=== PATIENT | male | born 1945 ===

== ENCOUNTER 2016-12-19 07:03 | Day surgery (SDC) | payer MEDICARE ==
[2016-09-12 08:58] VITALS: BMI 21.1
[2016-12-19] MEDS ORDERED: Propofol 10 mg/ml Inj (20 ML) ONE (08:43)
[2016-12-19] MEDS ORDERED: Lactated Ringer's 500 ML IV ONE (08:48)
[2016-12-19] MEDS ORDERED: Lidocaine Hydrochloride 5 ML INJ ONE (08:49)
--- NOTE | 2016-12-19 08:51 | CP.SDSHP ---
Same Day Surgery H & P - History Proposed Procedure: colonoscopy Pre-Op Diagnosis: change in bowels/constipation. weight loss - Previous Medical/Surgical History Cardiac: Hypertension Misc: Other (prostate cancer, gerd, gastritis, hiatal hernia, ) Pain: 0. No Pain Previous Surgical History: Prostatectomy - Allergies Allergies: Allergies No Known Allergies Allergy (Verified 12/19/16 07:32) - Physical Exam Vital Signs: Vital Signs 12/19/16 07:30 Pulse Rate 90 Mental Status: Alert & Oriented x3 Neuro: WNL Heart: WNL Lungs: WNL GI: WNL - Impression Impression: change in bowels/constipation. weight loss Pt. Evaluated Today:Candidate for Anesthesia & Procedure: Yes - Date & Time Date: 12/19/16 Time: 08:51 Short Stay Discharge - Short Stay Discharge Admitting Diagnosis/Reason for Visit: CHANGE IN BOWEL HABIT,LEFT LOWER QUADRANT PAIN,CON Disposition: HOME/ ROUTINE
[2016-12-19 09:22] VITALS: TEMP 97.1
[2016-12-19 09:31] VITALS: O2SAT 99
[2016-12-19 10:02] VITALS: BP 158/76; PULSE 65; RESP 15
== END 2016-12-19 10:15 | disposition home or self-care (01) ==
LOC: C.ENDO 07:03
PROVIDERS: ATTEND Internal Medicine Gastroenterology
DX: D12.7 Benign neoplasm of rectosigmoid junction (principal); K64.1 Second degree hemorrhoids; R19.4 Change in bowel habit; R63.4 Abnormal weight loss; I10 Essential (primary) hypertension; C61 Malignant neoplasm of prostate
CPT/HCPCS: 45380; 88305; J2704; J7120

== ENCOUNTER 2017-11-05 07:09 | Day surgery (SDC) | payer MEDICARE ==
[2017-11-05 07:29] VITALS: BMI 21.2
[2017-11-05] MEDS ORDERED: Propofol 10 mg/ml Inj (20 ML) ONE (08:23)
[2017-11-05] MEDS ORDERED: Lactated Ringer's 1,000 ML IV ONE (08:35)
--- NOTE | 2017-11-05 08:35 | CP.SDSHP ---
Same Day Surgery H & P - History Proposed Procedure: EGD Pre-Op Diagnosis: epigastric pain/tenderness - Previous Medical/Surgical History Cardiac: Hypertension Neuro: Backaches Misc: Other (diverticulosis, gerd, gastritis, colon polyps, depression, hemorrhoids, Prostate cancer) Previous Surgical History: prostatectomy - Allergies Allergies: Allergies No Known Allergies Allergy (Verified 12/19/16 07:32) - Physical Exam Vital Signs: Vital Signs 11/05/17 07:32 Temperature 98.7 F Pulse Rate 84 Respiratory 16 Rate Blood Pressure 162/81 H O2 Sat by Pulse 99 Oximetry Mental Status: Alert & Oriented x3 Neuro: WNL Heart: WNL Lungs: WNL GI: WNL - Impression Impression: epigastric pain/tenderness Pt. Evaluated Today:Candidate for Anesthesia & Procedure: Yes - Date & Time Date: 11/05/17 Time: 08:35 Short Stay Discharge - Short Stay Discharge Admitting Diagnosis/Reason for Visit: ACUTE GASTRITIS / EPIGASTRIC PAIN / TENDERNESS Disposition: HOME/ ROUTINE
[2017-11-05] MEDS ORDERED: Pantoprazole 40 mg EC Tab PO STA (08:36)
[2017-11-05] MEDS ORDERED: Lidocaine Hydrochloride 5 ML INJ ONE (08:55)
[2017-11-05 09:20] VITALS: TEMP 97
[2017-11-05 10:22] VITALS: RESP 18
[2017-11-05 10:25] VITALS: O2SAT 99
[2017-11-05 10:33] VITALS: BP 179/86; PULSE 68
== END 2017-11-05 09:55 | disposition home or self-care (01) ==
LOC: C.ENDO 07:09
PROVIDERS: ATTEND Internal Medicine Gastroenterology
DX: R10.13 Epigastric pain (principal); K21.0 Gastro-esophageal reflux disease with esophagitis; F32.9 Major depressive disorder, single episode, unspecified; I10 Essential (primary) hypertension; Z85.46 Personal history of malignant neoplasm of prostate; K29.50 Unspecified chronic gastritis without bleeding
CPT/HCPCS: 43239; 88305; J2704; J7120

== ENCOUNTER 2018-07-22 23:53 | Inpatient (IN) | payer MEDICARE ==
[2018-07-22 23:53] VITALS: BMI 21.2
--- NOTE | 2018-07-23 00:30 | C.PDOC ---
History Of Present Illness 73 year old male with a Hx of HTN and gastritis presents to the ER via EMS after being found wandering in the street. As per family, patient went to see Dr. Menendez at 1100 today where he had a bladder procedure done. Patient states he was given an anesthetic that numbed him from the waist down but notes he was awake for the procedure. Patient left the office at 1400, upon leaving he began to feel dizzy and could not remember how to get home so he wandered around. Family member at the bedside reports patient had a similar episode after coming out of a doctors office approximately 1-1.5 months ago. Patient is currently aaox3. Patient has Hx of surgery of the prostate from prostate ca. Denies chest pain, SOB, nausea, vomiting, or any injury. Time Seen by Provider: 07/23/18 00:30 Chief Complaint (Nursing): Medical Clearance History Per: Patient, Family History/Exam Limitations: no limitations Onset/Duration Of Symptoms: Hrs Current Symptoms Are (Timing): Still Present Recent travel outside of the [place]: No Past Medical History Reviewed: Historical Data, Nursing Documentation, Vital Signs Vital Signs: Last Vital Signs Temp 98.6 F 07/23/18 00:02 Pulse 94 H 07/23/18 00:02 Resp 20 07/23/18 00:02 BP 191/103 H 07/23/18 00:02 Pulse Ox 100 07/23/18 00:02 - Medical History PMH: Arthritis, Gastritis, HTN, Pneumonia Denies: Crohn's Disease, Diverticulitis, Gall Bladder Disease, Chronic Kidney Disease Surgical History: Endoscopy - [facility] Procedures COLONOSCOPY (07/21/14) ESOPHAGOGASTRODUODENOSCOPY [EGD] W/CLOSED BIOPSY (05/19/14) Family History: States: Unknown Family Hx - Social History Hx Tobacco Use: No Hx Alcohol Use: No Hx Substance Use: No - Immunization History Hx Tetanus Toxoid Vaccination: No Hx Influenza Vaccination: No Hx Pneumococcal Vaccination: No Review Of Systems Constitutional: Negative for: Fever, Chills, Weakness, Malaise Eyes: Negative for: Pain, Eyelid Inflammation ENT: Negative for: Ear Pain, Ear Discharge, Nose Pain, Nose Congestion, Mouth Pain, Mouth Swelling, Throat Pain, Throat Swelling Cardiovascular: Negative for: Chest Pain, Palpitations, Orthopnea, Edema, Light Headedness Respiratory: Negative for: Cough, Shortness of Breath, SOB with Excertion, Pleuritic Pain Gastrointestinal: Negative for: Nausea, Vomiting, Abdominal Pain, Constipation, Melena, Hematochezia Genitourinary: Negative for: Dysuria, Hematuria Musculoskeletal: Negative for: Neck Pain, Shoulder Pain, Arm Pain, Back Pain, Hand Pain Skin: Negative for: Rash, Lesions Neurological: Negative for: Weakness, Numbness, Incoordination, Change in Spee ch, Confusion, Seizures, Altered Mental Status, Headache, Dizziness Psych: Negative for: Anxiety, Depression Physical Exam - Physical Exam Appears: Well, Non-toxic, No Acute Distress Skin: Normal Color, Warm, Dry Head: Atraumatic, Normacephalic Eye(s): bilateral: Normal Inspection, PERRL, EOMI Ear(s): Bilateral: Normal Nose: Normal Oral Mucosa: Moist Tongue: Normal Appearing Lips: Normal Appearing Gingiva: Normal Appearing Throat: Normal, No Erythema Neck: Normal, Normal ROM, No Midline Cervical Tenderness, No Paracervical Tende rness, Supple, Other (no meningeal signs) Chest: Symmetrical, No Tenderness Cardiovascular: Rhythm Regular, No Friction Rub, No Murmur Respiratory: Normal Breath Sounds, No Rales, No Rhonchi, No Stridor, No Wheezing Gastrointestinal/Abdominal: Normal Exam, Soft, No Tenderness, No Mass, No Distention, No Rebound Back: Normal Inspection, No CVA Tenderness, No Vertebral Tenderness, No Decreased ROM Extremity: Normal ROM, No Tenderness, No Calf Tenderness, Capillary Refill (normal), No Deformity Extremity: Bilateral: Atraumatic, Hips Non-Tender, Normal ROM Pulses: Left Dorsalis Pedis: Normal, Right Dorsalis Pedis: Normal Neurological/Psych: Oriented x3, Normal Speech, Normal Cognition, Normal Cranial Nerves, No Cerebellar Signs, Normal Motor, Normal Sensation Gait: Steady Extremity: Right: No Drift, Left: No Drift, Upper: No Drift, Lower: No Drift ED Course And Treatment - Laboratory Results Result Diagrams: 07/23/18 01:07 07/23/18 01:07 ECG: Interpreted By Me, Viewed By Me ECG Rhythm: Sinus Rhythm ECG Interpretation: Normal Interpretation Of ECG: PVCs, No STEMI Rate From EC O2 Sat by Pulse Oximetry: 100 (Room air) Pulse Ox Interpretation: Normal - CT Scan/US CT Head Other Rad Studies (CT/US): Read By Radiologist, Radiology Report Reviewed CT/US Interpretation: EXAM: CT Head without Intravenous Contrast. CLINICAL HISTORY: Confused. TECHNIQUE: Axial computed tomography images of the head/brain without intravenous contrast. 1071 mGy-cm. COMPARISON: CT\SD - HEAD W/O CONTRAST - 10/15/2015 08:34 AM EST. FINDINGS: BRAIN. Chronic periventricular and subcortical microvascular disease is seen. VENTRICLES: There is generalized parenchymal atrophy noted as demonstrated by symmetrical dilatation of ventricles and sulci. ORBITS: The orbits are unremarkable. SINUSES AND MASTOIDS: The paranasal sinuses and mastoid air cells are clear. BONES: No fracture. SOFT TISSUES: Unremarkable. MISCELLANEOUS: No acute intracranial pathology. IMPRESSION: 1. There is generalized parenchymal atrophy noted as demonstrated by symmetrical dilatation of ventricles and sulci. 2. Chronic periventricular and subcortical microvascular disease is seen. 3. No acute intracranial pathology. Medical Decision Making Medical Decision Makin yr old male w/ hx of HLD, recent cystoscopy p/w confusion this morning after procedure. Pt was given anesthesia and medications. Per family pt was wandering until found by PD. Pt notes that he was confused on how to get home. Previous occurence similiar to this one after getting anesthesia and medications. No fever. No chest pain or SOB. No fall or trauma. No back pain. Walking well in NAD. AOx3 w/ normal neuro exam. BP likely elevated 2/2 pt not taking PM dose of norvasc, will give pM dose CT head, blood work, EKG, and urinalysis ordered. Norvasc and IV fluids administered. 0210 labs, ct head unremarkable BP improved pt remains AOx3, N/V intact in all extremities and without FND. Clear for d/c home likely confused/ lost getting home 2/2 med side effect. given return instructions and f/u to pt and family members bedside, they are all agreeable Disposition - Disposition Disposition Time: 02:09 Condition: GOOD Forms: [facility] (Georgian) - Clinical Impression Clinical Impression: Well adult health check - Scribe Statement The provider has reviewed the documentation as recorded by the Scribe Darrian Che All medical record entries made by the Scribe were at my direction and personally dictated by me. I have reviewed the chart and agree that the record a ccurately reflects my personal performance of the history, physical exam, medical decision making, and the department course for this patient. I have also personally directed, reviewed, and agree with the discharge instructions and disposition.
[2018-07-23 01:15] LABS: BASO % 0.3 % (0.0-2.0); EOS % 0.1 % (0.0-4.0); HEMOGLOBIN 14.6 g/dL (12.0-18.0); LYMPH # 1.1 K/uL (1.0-4.3); LYMPH % 9.1 % (20.0-40.0); MEAN CELL VOLUME 91.1 fL (80.0-94.0); MEAN CORPUSCULAR HEMOGLOBIN 31.4 pg (27.0-31.0); MEAN CORPUSCULAR HGB CONC 34.5 g/dL (33.0-37.0); MEAN PLATELET VOLUME 7.9 fL (7.2-11.7); MONO # 0.9 K/uL (0.0-0.8); MONO % 7.5 % (0.0-10.0); PLATELET COUNT 261 K/uL (130-400); RBC 4.64 Mil/uL (4.40-5.90); RED CELL DISTRIBUTION WIDTH 13.5 % (11.5-14.5); WHITE BLOOD COUNT 12.1 K/uL (4.8-10.8)
[2018-07-23] MEDS ORDERED: Sodium Chloride 0.9% 1,000 ML IV SCH ×4 (01:15→23:00)
[2018-07-23 01:39] LABS: ALB/GLOB RATIO 1.6 (1.0-2.1); ALBUMIN 4.5 g/dL (3.5-5.0); ALT/SGPT 42 U/L (21-72); AST/SGOT 128 U/L (17-59); BLOOD UREA NITROGEN 14 mg/dL (9-20); CALCIUM 9.6 mg/dl (8.6-10.4); GFR NON-AFRICAN AMERICAN > 60
[2018-07-23 01:41] LABS: SQUAMOUS EPITHIAL < 1 /hpf (0-5); URINE BILIRUBIN NEGATIVE (NEGATIVE); URINE BLOOD NEGATIVE (NEGATIVE); URINE CLARITY Clear (Clear); URINE COLOR Yellow (YELLOW); URINE GLUCOSE (UA) NORMAL (Normal); URINE LEUKOCYTE ESTERASE NEG Leu/uL (Negative); URINE PROTEIN NEGATIVE (NEGATIVE); URINE UROBILINOGEN NORMAL mg/dL (0.2-1.0)
[2018-07-23 01:57] LABS: BANDS 1 % (0-2); LYMPHOCYTE 10 % (20-40); MONOCYTE 8 % (0-10); NEUTROPHIL 81 % (50-75); PLATELET ESTIMATE NORMAL (NORMAL); TOTAL CELLS COUNTED 100
[2018-07-23] MEDS ORDERED: Sodium Chloride 0.9% 1,000 ML IV ONE (02:43)
[2018-07-23 02:51] VITALS: RESP 20
--- NOTE | 2018-07-23 07:30 | CP.PCM.PN ---
Subjective - Date & Time of Evaluation Date of Evaluation: 07/23/18 Time of Evaluation: 09:35 - Subjective Subjective: Mr. Aragon is a 73 year old male with a PMHx of Arthritis, HTN, and Prostate CA (12 years remission) who was admitted for evaluation and treatment of rhabdomyolysis. Patient states that he left from his Biannual Prostate follow up in a taxi. During that physician visit he underwent procedure where he was numb for the waist down. Following the visit, the took a taxi to go home. The taxi went too far. When the taxi finally realized he went to far, he dropped him off at the current location at the time. Patient because confused and walked around for hours. His family called the police. He was found by police, brought home, and then the family brought him the [facility] ED. Today, patient offers no complaints. He denies any fevers, chills, SOB, chest pain, abdominal pain, nausea, vomiting, changes in bowel habits, urinary symptoms PMHx: As stated above PSHx: Prostatectomy Allergies: NDKA SocialHx: Denies tobacco, alcohol and illicit drug use Hos: Sepsis 2/2 to PNA in 09/2016 FamHx: Sister - Breast CA, Brother x 2 - Prostate CA Meds: per NOV. Objective - Vital Signs/Intake and Output Vital Signs (last 24 hours): Temp Pulse Resp BP Pulse Ox 97.8 F 84 20 126/78 99 07/23/18 05:10 07/23/18 05:10 07/23/18 05:10 07/23/18 05:10 07/23/18 05:10 Intake and Output: 07/23/18 07/23/18 06:59 18:59 Output Total 275 Balance -275 - Medications Medications: Current Medications Influenza Virus Vaccine (Fluzone Quad [id number]) 60 mcg IM .ONCE ONE Stop: 07/25/18 10:01 Pneumococcal Polyvalent Vaccine (Pneumovax 23 Vaccine) 0.5 ml IM .ONCE ONE Stop: 07/25/18 10:01 - Labs Labs: 07/23/18 01:07 07/23/18 01:07 - Constitutional Appears: Well, Non-toxic, No Acute Distress - Head Exam Head Exam: ATRAUMATIC, NORMAL INSPECTION, NORMOCEPHALIC - Eye Exam Eye Exam: EOMI, Normal appearance - ENT Exam ENT Exam: Mucous Membranes Moist - Respiratory Exam Respiratory Exam: Clear to Ausculation Bilateral. absent: Accessory Muscle Use - GI/Abdominal Exam GI & Abdominal Exam: Soft, Normal Bowel Sounds. absent: Tenderness - Extremities Exam Extremities Exam: Normal Capillary Refill, Normal Inspection - Neurological Exam Neurological Exam: Alert, Awake, Oriented x3 - Psychiatric Exam Psychiatric exam: Normal Affect, Normal Mood - Skin Skin Exam: Dry, Intact, Normal Color, Warm Assessment and Plan - Assessment and Plan (Free Text) Assessment: 73 year old male with a PMHx of Arthritis, HTN, and Prostate CA (12 years remission) who was admitted for evaluation and treatment of rhabdomyolysis Plan: Rhabdomyolysis Total CK - 4989 on Admission Troponin Negative Physical Therapy Meds: NS @ 300mls/hr then taper Leukocytosis Likely Reactive 2/2 to above Elevated liver enzymes AST elevated Hepatitis Panel Ordered, F/U Hx of HTN Meds: Losartan 100 Daily Amlodipine 5 PO Daily Hx of Prostate CA Meds: Flomax 0.4mg Daily Proph Heparin Q12H Regular diet Patient seen and discussed with Attending Bebeto Felder, PGY-2
--- NOTE | 2018-07-23 09:42 | CT ---
Date of service: 07/23/2018 PROCEDURE: CT HEAD WITHOUT CONTRAST. HISTORY: Confused earlier COMPARISON: Comparison made with CT scan the brain 10/15/2015. TECHNIQUE: Axial computed tomography images were obtained through the head/brain without intravenous contrast. Radiation dose: Total exam DLP = 1071.25 mGy-cm. This CT exam was performed using one or more of the following dose reduction techniques: Automated exposure control, adjustment of the mA and/or kV according to patient size, and/or use of iterative reconstruction technique. FINDINGS: HEMORRHAGE: No acute parenchymal, subarachnoid or extra-axial the hemorrhage. BRAIN: The moderate diffuse/confluent chronic periventricular white matter ischemic changes are again seen extending peripherally into the deep and subcortical white matter both cerebral hemispheres. Changes become more patchy as they extend peripherally into the subcortical of regions. Additionally, there are scattered chronic appearing bilateral basal nuclei lacunar type infarcts. Small chronic left cerebellar infarct again noted well. Mild-moderate generalized volume loss Mild vascular calcifications both carotid siphons the VENTRICLES: No obstructive hydrocephalus. CALVARIUM: No acute calvarial fractures.. 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 PARANASAL SINUSES: Small focal area polypoid like mucosal thickening floor right maxillary antrum. MASTOID AIR CELLS: Partial opacification right mastoid air complex OTHER FINDINGS: None. IMPRESSION: No acute intracranial hemorrhage. Moderate chronic white matter ischemic changes with scattered chronic appearing bilateral basal nuclei lacunar type infarcts. 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 Segment. The Moderate generalized volume loss. 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
[2018-07-23] MEDS: Sodium Chloride 0.9% 1,000 ML IV SCH ×4 (11:59→21:46)
[2018-07-24] MEDS: Sodium Chloride 0.9% 1,000 ML IV SCH ×3 (02:30→12:18)
[2018-07-24 07:39] LABS: BASO % 0.6 % (0.0-2.0); EOS # 0.1 K/uL (0.0-0.7); EOS % 1.5 % (0.0-4.0); HEMOGLOBIN 13.5 g/dL (12.0-18.0); LYMPH # 1.8 K/uL (1.0-4.3); LYMPH % 26.6 % (20.0-40.0); MEAN CELL VOLUME 91.5 fL (80.0-94.0); MEAN CORPUSCULAR HEMOGLOBIN 31.7 pg (27.0-31.0); MEAN CORPUSCULAR HGB CONC 34.6 g/dL (33.0-37.0); MEAN PLATELET VOLUME 7.5 fL (7.2-11.7); MONO # 0.5 K/uL (0.0-0.8); MONO % 7.9 % (0.0-10.0); NEUT # 4.2 K/uL (1.8-7.0); NEUT % 63.4 % (50.0-75.0); RBC 4.25 Mil/uL (4.40-5.90); RED CELL DISTRIBUTION WIDTH 13.7 % (11.5-14.5); WHITE BLOOD COUNT 6.6 K/uL (4.8-10.8)
[2018-07-24 07:46] LABS: INR 1.3; PROTHROMBIN TIME 13.8 SECONDS (9.7-12.2)
[2018-07-24 08:32] LABS: ALB/GLOB RATIO 1.2 (1.0-2.1); ALBUMIN 3.3 g/dL (3.5-5.0); ALT/SGPT 38 U/L (21-72); AST/SGOT 91 U/L (17-59); BLOOD UREA NITROGEN 11 mg/dL (9-20); CALCIUM 8.3 mg/dl (8.6-10.4); GFR NON-AFRICAN AMERICAN > 60
[2018-07-24 08:36] LABS: HEPATITIS B SURFACE AG Negative (NEGATIVE)
[2018-07-24 08:42] LABS: HEPATITIS A IGM NEGATIVE (NEGATIVE); HEPATITIS B CORE AB NEGATIVE (NEGATIVE)
[2018-07-24 08:45] VITALS: BP 170/85; PULSE 92; TEMP 98.4; O2SAT 99
[2018-07-24 08:53] LABS: HEPATITIS B SURFACE AG Negative (NEGATIVE); HEPATITIS C ANTIBODY NEGATIVE (NEGATIVE)
[2018-07-24] MEDS ORDERED: Magnesium Oxide 400 mg Tab UD PO ONE (11:59)
--- NOTE | 2018-07-24 12:00 | CP.PCM.PN ---
Subjective - Date & Time of Evaluation Date of Evaluation: 07/24/18 Time of Evaluation: 12:00 - Subjective Subjective: PGY2 Progress note for Dr. Randall Patient was seen and examined at bedside in no acute distress. Patient reports feeling well and has no complaints. The patient denies chest pain, palpitations, dyspnea, cough, nausea, vomiting, fevers, headaches, muscle aches, dysuria, and diarrhea. Objective - Vital Signs/Intake and Output Vital Signs (last 24 hours): Temp Pulse Resp BP Pulse Ox 98.4 F 92 H 20 170/85 H 99 07/24/18 08:00 07/24/18 08:00 07/24/18 08:00 07/24/18 08:00 07/24/18 08:00 Intake and Output: 07/24/18 07/24/18 06:59 18:59 Intake Total 1900 Balance 1900 - Medications Medications: Current Medications Amlodipine Besylate (Norvasc) 5 mg PO DAILY [facility] Last Admin: 07/24/18 10:04 Dose: 5 mg Gabapentin (Neurontin) 100 mg PO TID PRN PRN Reason: Pain Last Admin: 07/23/18 11:58 Dose: 100 mg Heparin Sodium (Porcine) (Heparin) 5,000 units SC Q12 [facility] Last Admin: 07/24/18 10:04 Dose: 5,000 units Sodium Chloride (Sodium Chloride 0.9%) 1,000 mls @ 200 mls/hr IV .Q5H [facility] Last Admin: 07/24/18 07:30 Dose: 200 mls/hr Influenza Virus Vaccine (Fluzone Quad [id number]) 60 mcg IM .ONCE ONE Stop: 07/25/18 10:01 Losartan Potassium (Cozaar) 100 mg PO DAILY [facility] Last Admin: 07/24/18 10:04 Dose: 100 mg Magnesium Oxide (Mag-Ox) 400 mg PO ONCE ONE Stop: 07/24/18 12:00 Pneumococcal Polyvalent Vaccine (Pneumovax 23 Vaccine) 0.5 ml IM .ONCE ONE Stop: 07/25/18 10:01 Tamsulosin HCl (Flomax) 0.4 mg PO DAILY [facility] Last Admin: 07/24/18 10:04 Dose: 0.4 mg - Labs Labs: 07/24/18 07:32 07/24/18 07:32 PT 13.8 SECONDS (9.7-12.2) H 07/24/18 07:32 INR 1.3 07/24/18 07:32 APTT 28 SECONDS (21-34) 07/24/18 07:32 - Constitutional Appears: No Acute Distress - Head Exam Head Exam: NORMAL INSPECTION - Eye Exam Eye Exam: EOMI, Normal appearance - ENT Exam ENT Exam: Mucous Membranes Moist - Respiratory Exam Respiratory Exam: NORMAL BREATHING PATTERN. absent: Rales, Rhonchi, Wheezes, Respiratory Distress - Cardiovascular Exam Cardiovascular Exam: REGULAR RHYTHM, +S1, +S2 - GI/Abdominal Exam GI & Abdominal Exam: Soft, Normal Bowel Sounds. absent: Distended, Firm, Guarding, Tenderness - Extremities Exam Extremities Exam: Normal Inspection. absent: Calf Tenderness, Pedal Edema, Tenderness - Neurological Exam Neurological Exam: Alert, Awake, Oriented x3 - Psychiatric Exam Psychiatric exam: Normal Affect, Normal Mood - Skin Skin Exam: Dry, Intact, Normal Color, Warm Assessment and Plan - Assessment and Plan (Free Text) Plan: 73 year old male with a PMHx of Arthritis, HTN, and Prostate CA (12 years remission) who was admitted for evaluation and treatment of rhabdomyolysis Rhabdomyolysis Improving Total CK - 4989 on Admission --> 1130 Troponin Negative Physical Therapy Meds: NS @ 300mls/hr then taper Leukocytosis Resovled Likely Reactive 2/2 to above Elevated liver enzymes Decreasing AST elevated Hepatitis A,B, C negative HTN Meds: Losartan 100 Daily , Amlodipine 5 PO Daily Prostate CA Meds: Flomax 0.4mg Daily Prophylaxis - Heparin Q12H - Regular diet All medical management per Dr. Randall. Patient is stable for discharge to home per Dr. Randall. Patient must continue home medications. Patient must follow up with PMD within one week of discharge. If symptoms worsen or reoccur, patient must return to the nearest ED.
[2018-07-25] MEDS ORDERED: Pneumococcal 23-Valent Vaccine IM ONE (10:00)
[2018-07-25] MEDS ORDERED: Influenza Vaccine 60 MCG/0.5 ML SYR (3 yr & up) IM ONE (10:00)
--- NOTE | 2018-07-25 10:06 | HP ---
HISTORY OF PRESENT ILLNESS: A 73-year-old male admitted to the hospital complaining of confusion, weakness after outpatient surgery. The patient was confused in the care, but denies go to the hospital. Advised admission. PHYSICAL EXAMINATION: GENERAL: The patient is awake, alert, oriented. VITAL SIGNS: Temperature 98, pulse 90. HEENT: Within normal limit. NECK: Supple. CHEST: Symmetrical. HEART: Regular. ABDOMEN: Soft. EXTREMITIES: No edema. 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 The patient is to get bedrest, supportive care, IV fluid. Fabricio Randall MD
== END 2018-07-24 13:05 | disposition home or self-care (01) | DRG 558 ==
LOC: C.ER 23:53 → C.3T 07-23 04:12
PROVIDERS: ADMIT Internal Medicine Pulmonary Disease; ATTEND Internal Medicine Pulmonary Disease
DX: M62.82 Rhabdomyolysis (principal); Z85.46 Personal history of malignant neoplasm of prostate; R74.8 Abnormal levels of other serum enzymes; I10 Essential (primary) hypertension; E78.5 Hyperlipidemia, unspecified; F09 Unspecified mental disorder due to known physiological condition; Z91.83 Wandering in diseases classified elsewhere

== ENCOUNTER 2018-07-25 07:52 | Emergency (ER) | payer MEDICARE ==
[2018-07-25 07:52] VITALS: BMI 21.2
--- NOTE | 2018-07-25 08:17 | C.PDOC ---
History Of Present Illness 73 yo male, hx of rhabdo, htn, presetns with lower abd pain, constipation x 5 days. as per preivous records, admitted for rhabdo, dc yesterdya. pt reports continued lower abd pain. no fevers, no n/v. pt poor historairn, reportly arr ived confused in er few days back s/p prostate procedure. Time Seen by Provider: 07/25/18 07:56 Chief Complaint (Nursing): Abdominal Pain Past Medical History Reviewed: Historical Data, Nursing Documentation, Vital Signs Vital Signs: Last Vital Signs Temp 98.7 F 07/25/18 08:00 Pulse 81 07/25/18 08:00 Resp 18 07/25/18 08:00 BP 186/82 H 07/25/18 08:00 Pulse Ox 100 07/25/18 08:00 - Medical History PMH: Arthritis, Gastritis, HTN, Pneumonia Denies: Crohn's Disease, Diverticulitis, Gall Bladder Disease, Chronic Kidney Disease Surgical History: Endoscopy - [facility] Procedures COLONOSCOPY (07/21/14) ESOPHAGOGASTRODUODENOSCOPY [EGD] W/CLOSED BIOPSY (05/19/14) Family History: States: Unknown Family Hx - Social History Hx Tobacco Use: No Hx Alcohol Use: No Hx Substance Use: No - Immunization History Hx Tetanus Toxoid Vaccination: No Hx Influenza Vaccination: No Hx Pneumococcal Vaccination: No Review Of Systems Except As Marked, All Systems Reviewed And Found Negative. Gastrointestinal: Positive for: Abdominal Pain Physical Exam - Physical Exam Appears: Well, No Acute Distress Skin: Normal Color, Warm, Dry Eye(s): bilateral: Normal Inspection, PERRL, EOMI Nose: Normal Throat: Normal Neck: Normal Cardiovascular: Rhythm Regular Respiratory: Normal Breath Sounds Gastrointestinal/Abdominal: Normal Exam, Soft, Tenderness (lower abd), No Guarding, No Rebound Back: Normal Inspection Extremity: Normal ROM ED Course And Treatment - Laboratory Results Result Diagrams: 07/25/18 08:21 07/25/18 08:21 O2 Sat by Pulse Oximetry: 100 Medical Decision Making Medical Decision Making: lower abd pain r/o coltiis pbostruciton, procedural complciation. ekg nsr [address] t wavce changes pt reassesed labs neg. ct shows constioation. enema given with large bm asking for dc. Disposition - Disposition Referrals: Eitan Alvarado MD [Staff Provider] - Disposition: HOME/ ROUTINE Disposition Time: 12:30 Condition: GOOD Additional Instructions: return to er with worsening symptoms or concerns. follow up with specialist. Prescriptions: Polyethylene Glycol 3350 [Miralax] 17 gm PO DAILY PRN #4 [email or web address] PRN Reason: Constipation Instructions: Constipation in Adults, Acute Abdomen (Belly Pain) Forms: [facility] (Azerbaijani), Work Excuse Print Language: BURUNDIAN - Clinical Impression Clinical Impression: Constipation, Abdominal pain
[2018-07-25 08:25] LABS: BASO # 0.1 K/uL (0.0-0.2); BASO % 0.7 % (0.0-2.0); EOS # 0.1 K/uL (0.0-0.7); EOS % 1.1 % (0.0-4.0); HEMOGLOBIN 13.3 g/dL (12.0-18.0); LYMPH # 1.1 K/uL (1.0-4.3); LYMPH % 13.1 % (20.0-40.0); MEAN CELL VOLUME 91.2 fL (80.0-94.0); MEAN CORPUSCULAR HEMOGLOBIN 31.4 pg (27.0-31.0); MEAN CORPUSCULAR HGB CONC 34.4 g/dL (33.0-37.0); MEAN PLATELET VOLUME 7.7 fL (7.2-11.7); MONO # 0.6 K/uL (0.0-0.8); MONO % 7.2 % (0.0-10.0); NEUT # 6.4 K/uL (1.8-7.0); NEUT % 77.9 % (50.0-75.0); NRBC % 0.1 % (0.0-2.0); RBC 4.23 Mil/uL (4.40-5.90); RED CELL DISTRIBUTION WIDTH 13.6 % (11.5-14.5); WHITE BLOOD COUNT 8.2 K/uL (4.8-10.8)
[2018-07-25 08:36] LABS: INR 1.2
[2018-07-25 08:49] LABS: ALB/GLOB RATIO 1.3 (1.0-2.1); ALBUMIN 4.2 g/dL (3.5-5.0); ALT/SGPT 43 U/L (21-72); AST/SGOT 121 U/L (17-59); BLOOD UREA NITROGEN 10 mg/dL (9-20); CALCIUM 9.2 mg/dl (8.6-10.4); GFR NON-AFRICAN AMERICAN > 60; LIPASE 49 U/L (23-300)
--- NOTE | 2018-07-25 08:56 | RAD ---
Chest x-ray single frontal view HISTORY: Chest pain. Comparison: 09/12/2016 Findings: Hyperinflation suggestive for COPD and or emphysematous changes. Biapical pleural thickening with upper lobe granulomatous changes. Diffuse increased interstitial markings. Blunting of the bilateral costophrenic angles. Few small scattered nodular densities in both galvan. Heart size within limits. Aortic atherosclerotic calcification at the aortic knob. Degenerative changes in the spine. Impression: Hyperinflation suggestive for COPD and or emphysematous changes. Biapical pleural thickening with upper lobe granulomatous changes. Diffuse increased interstitial markings. Blunting of the bilateral costophrenic angles. Few small scattered nodular densities in both galvan. Heart size within limits. Aortic atherosclerotic calcification at the aortic knob. Degenerative changes in the spine.
[2018-07-25 09:40] LABS: URINE BILIRUBIN NEGATIVE (NEGATIVE); URINE BLOOD NEGATIVE (NEGATIVE); URINE CLARITY Clear (Clear); URINE COLOR Straw (YELLOW); URINE GLUCOSE (UA) NORMAL (Normal); URINE LEUKOCYTE ESTERASE NEG Leu/uL (Negative); URINE PROTEIN NEGATIVE (NEGATIVE); URINE UROBILINOGEN NORMAL mg/dL (0.2-1.0)
[2018-07-25] MEDS ORDERED: Iodixanol 320 MG/ML 100 ML BOTTLE IV ONE (09:56)
--- NOTE | 2018-07-25 11:21 | CT ---
Date of service: 07/25/2018 PROCEDURE: CT Abdomen and Pelvis with contrast HISTORY: lower abd pain COMPARISON: Comparison is made to the previous study dated 06/24/2018 TECHNIQUE: Contrast dose: Axial and reformatted coronal and sagittal CT images of the abdomen and pelvis were obtained after IV contrast administration. Contrast volume: 100 mL Visipaque 320 intravenously. Radiation dose: Total exam DLP = 226.39 mGy-cm. This CT exam was performed using one or more of the following dose reduction techniques: Automated exposure control, adjustment of the mA and/or kV according to patient size, and/or use of iterative reconstruction technique. FINDINGS: LOWER THORAX: No evidence of acute pathology at the lung bases. Diffuse distal esophageal mucosal thickening is again noted. LIVER: No significant interval changes noted in the liver. GALLBLADDER AND BILE DUCTS: No evidence of acute cholecystitis. PANCREAS: Small size pancreas with slight dilatation of the main pancreatic duct is again noted. SPLEEN: Unremarkable. ADRENALS: Unremarkable. No mass. KIDNEYS AND URETERS: Again noted defects in the bilateral renal cortex suggestive of prior injury or infection. No evidence of hydronephrosis or hydroureter. VASCULATURE: Unremarkable. No aortic aneurysm. No aortic atherosclerotic calcification or mural plaque present. BOWEL: Mild to moderate constipation is noted. No obstruction. No gross mural thickening. APPENDIX: No evidence of appendicitis. PERITONEUM: Unremarkable. No free fluid. No free air. LYMPH NODES: Unremarkable. No enlarged lymph nodes. BLADDER: Unremarkable. REPRODUCTIVE: Unremarkable. BONES: No acute fracture. OTHER FINDINGS: None. IMPRESSION: [id number] constipation. Otherwise no significant interval changes noted since the prior study.
[2018-07-25 12:55] VITALS: BP 154/79; PULSE 88; RESP 18; TEMP 99.3
[2018-07-25 16:04] VITALS: O2SAT 100
--- NOTE | 2018-07-29 22:24 | CARD ---
APPROVED REPORT Date of service: 07/25/2018 EKG Measurement Heart [id number] [place] [id number] <Conclusion> Sinus rhythm with premature ventricular complexes or fusion complexes Minimal voltage criteria for LVH, may be normal variant Borderline ECG
== END 2018-07-25 13:31 | disposition home or self-care (01) ==
LOC: C.ER 07:52
DX: R10.9 Unspecified abdominal pain (principal); K59.00 Constipation, unspecified; I10 Essential (primary) hypertension; Z87.01 Personal history of pneumonia (recurrent)
CPT/HCPCS: 71045; 74177; 80053; 81001; 82550; 83690; 84484; 85025; 85610; 85730; 93005; 99285; Q9967

== ENCOUNTER 2018-08-20 07:10 | Day surgery (SDC) | payer MEDICARE ==
[2018-08-20 07:53] VITALS: TEMP 98
--- NOTE | 2018-08-20 09:00 | CP.SDSHP ---
Same Day Surgery H & P - History Proposed Procedure: EGD Pre-Op Diagnosis: abnormal CT Scan of stomach. persistent upper abdominal pain - Previous Medical/Surgical History Cardiac: Hypertension Endocrine/Metabolic: Other (Depression/anxiety) Neuro: Other (GERD, Gastritis, diverticulosis, hiatal hernia, Prostate Cancer) - Allergies Allergies: Allergies No Known Allergies Allergy (Verified 07/25/18 08:22) - Physical Exam Vital Signs: Vital Signs 08/20/18 07:41 Temperature 98 F Pulse Rate 92 H Respiratory 17 Rate Blood Pressure 132/71 O2 Sat by Pulse 100 Oximetry Mental Status: Alert & Oriented x3 Neuro: WNL Heart: WNL Lungs: WNL GI: WNL - Impression Impression: abnormal CT of stomach. persistent abdominal pain Pt. Evaluated Today:Candidate for Anesthesia & Procedure: Yes - Date & Time Date: 08/20/18 Time: 09:00 Short Stay Discharge - Short Stay Discharge Admitting Diagnosis/Reason for Visit: EPIGASTRIC PAIN, CONSTIPATION, GERD Disposition: HOME/ ROUTINE
[2018-08-20] MEDS ORDERED: Propofol 10 mg/ml Inj (20 ML) ONE (09:08)
[2018-08-20] MEDS ORDERED: Lactated Ringer's 500 ML IV ONE (09:15)
[2018-08-20] MEDS ORDERED: Lactated Ringer's 500 ML IV SCH (09:15)
[2018-08-20 10:04] VITALS: RESP 18
[2018-08-20 10:32] VITALS: BP 128/69; PULSE 81; O2SAT 99
== END 2018-08-20 10:30 | disposition home or self-care (01) ==
LOC: C.ENDO 07:10
PROVIDERS: ATTEND Internal Medicine Gastroenterology
DX: K44.9 Diaphragmatic hernia without obstruction or gangrene (principal); K20.9 Esophagitis, unspecified; K29.70 Gastritis, unspecified, without bleeding; R10.13 Epigastric pain; K59.00 Constipation, unspecified; R93.5 Abnormal findings on diagnostic imaging of other abdominal regions, including retroperitoneum; K21.0 Gastro-esophageal reflux disease with esophagitis
CPT/HCPCS: 43239; 88305; 88312; 88313; 88342; J2704; J7120

== ENCOUNTER 2018-09-15 18:02 | Emergency (ER) | payer MEDICARE ==
[2018-09-15 18:05] VITALS: BMI 18.6
[2018-09-15 18:08] VITALS: RESP 18
[2018-09-15] MEDS ORDERED: Sodium Chloride 0.9% 1,000 ML IV ONE (19:28)
--- NOTE | 2018-09-15 19:33 | C.PDOC ---
History Of Present Illness 73 year old male with a history of gastritis presents to the emergency department with complaints of abdominal pain for the last four days. Patient states that he is constipated, but offers no other complaints at this time. Time Seen by Provider: 09/15/18 19:21 Chief Complaint (Nursing): Abdominal Pain History Per: Patient History/Exam Limitations: no limitations Onset/Duration Of Symptoms: Days (4) Current Symptoms Are (Timing): Still Present Location Of Pain/Discomfort: Other (abdomen) Quality Of Discomfort: "Pain" Associated Symptoms: Constipation. denies: Fever, Chills, Nausea, Vomiting, Diarrhea Past Medical History Reviewed: Historical Data, Nursing Documentation, Vital Signs Vital Signs: Last Vital Signs Temp 98.2 F 09/15/18 18:05 Pulse 99 H 09/15/18 18:05 Resp 18 09/15/18 18:05 BP 170/76 H 09/15/18 18:05 Pulse Ox 100 09/15/18 18:05 - Medical History PMH: Arthritis, Gastritis, HTN, Pneumonia Denies: Chronic Kidney Disease Surgical History: Endoscopy - [facility] Procedures COLONOSCOPY (07/21/14) ESOPHAGOGASTRODUODENOSCOPY [EGD] W/CLOSED BIOPSY (05/19/14) Family History: States: No Known Family Hx - Social History Hx Tobacco Use: No Hx Alcohol Use: No Hx Substance Use: No - Immunization History Hx Tetanus Toxoid Vaccination: No Hx Influenza Vaccination: No Hx Pneumococcal Vaccination: No Review Of Systems Except As Marked, All Systems Reviewed And Found Negative. Constitutional: Negative for: Fever, Chills Gastrointestinal: Positive for: Abdominal Pain, Constipation. Negative for: Nausea, Vomiting, Diarrhea Physical Exam - Physical Exam Appears: Non-toxic, No Acute Distress Skin: Normal Color, Warm, Dry Head: Atraumatic, Normacephalic Eye(s): bilateral: Normal Inspection, PERRL, EOMI Oral Mucosa: Moist Neck: Normal, Supple Chest: Symmetrical, No Tenderness Cardiovascular: Rhythm Regular, No Murmur Respiratory: No Rales, No Rhonchi, No Wheezing Gastrointestinal/Abdominal: Soft, Tenderness (non-focal abdominal tenderness), No Guarding, No Rebound Rectal: Other (hard stool present in rectum) Neurological/Psych: Oriented x3, Normal Speech, Normal Cognition ED Course And Treatment - Laboratory Results Result Diagrams: 09/15/18 19:36 09/15/18 19:36 O2 Sat by Pulse Oximetry: 100 (RA) Pulse Ox Interpretation: Normal Medical Decision Making Medical Decision Making: suspect consitpation - Plan: Chemistry Bloodwork XR Obstructive Series NaCl IV Fluids Urinalysis pt given emema. at first, no bm, but later had large bm. refuses further imaging. feels better asking for dc. Disposition - Disposition Disposition: HOME/ ROUTINE Disposition Time: 12:00 Condition: STABLE Additional Instructions: return to er with worsening symptoms or concerns. Instructions: Constipation in Adults, Fecal Impaction Forms: [employer] ([employer]) Print Language: MONGOLIAN - Clinical Impression Clinical Impression: Abdominal pain, Constipation - Scribe Statement The provider has reviewed the documentation as recorded by the Scribe (Efren Jeff) Provider Attestation: All medical record entries made by the Scribe were at my direction and personally dictated by me. I have reviewed the chart and agree that the record accurately reflects my personal performance of the history, physical exam, medical decision making, and the department course for this patient. I have also personally directed, reviewed, and agree with the discharge instructions and disposition.
[2018-09-15 19:41] LABS: BASO # 0.1 K/uL (0.0-0.2); BASO % 0.7 % (0.0-2.0); EOS # 0.1 K/uL (0.0-0.7); HEMOGLOBIN 14.1 g/dL (12.0-18.0); LYMPH # 1.2 K/uL (1.0-4.3); LYMPH % 15.8 % (20.0-40.0); MEAN CELL VOLUME 92.7 fL (80.0-94.0); MEAN CORPUSCULAR HGB CONC 34.5 g/dL (33.0-37.0); MEAN PLATELET VOLUME 7.8 fL (7.2-11.7); MONO # 0.5 K/uL (0.0-0.8); MONO % 7.2 % (0.0-10.0); NEUT # 5.6 K/uL (1.8-7.0); NEUT % 75.3 % (50.0-75.0); RBC 4.41 Mil/uL (4.40-5.90); RED CELL DISTRIBUTION WIDTH 13.9 % (11.5-14.5); WHITE BLOOD COUNT 7.5 K/uL (4.8-10.8)
[2018-09-15 19:55] LABS: INR 1.3
[2018-09-15 19:58] LABS: ALB/GLOB RATIO 1.5 (1.0-2.1); ALBUMIN 4.6 g/dL (3.5-5.0); BLOOD UREA NITROGEN 14 mg/dL (9-20); CALCIUM 9.2 mg/dl (8.6-10.4); GFR NON-AFRICAN AMERICAN > 60; LIPASE 48 U/L (23-300)
[2018-09-15 20:11] LABS: ALT/SGPT 22 U/L (21-72); AST/SGOT 35 U/L (17-59)
[2018-09-15] MEDS ORDERED: Sodium Chloride 0.9% 1,000 ML ONE (20:21)
[2018-09-15] MEDS ORDERED: Magnesium Citrate Oral SOL (300 ml) PO ONE (22:27)
[2018-09-15] MEDS ORDERED: Iohexol 350mg/ml 100 ML ONE (23:05)
[2018-09-15] MEDS ORDERED: Magnesium Citrate Oral SOL (300 ml) ONE (23:12)
[2018-09-16 00:03] VITALS: BP 156/81; PULSE 94; TEMP 98.9
--- NOTE | 2018-09-16 08:37 | RAD ---
Date of service: 09/15/2018 PROCEDURE: Radiographs of the chest and abdomen (obstructive series) HISTORY: abd pain COMPARISON: No prior. TECHNIQUE: AP radiograph of the chest, with upright and supine radiographs of the abdomen. FINDINGS: CHEST: Lungs: Clear. Hyperinflated Cardiovascular: Normal size heart. No pulmonary vascular congestion. There is presence of aortic atherosclerotic calcification on x-ray. Pleura: No pleural fluid. No pneumothorax. Other findings: Dextroscoliosis ABDOMEN AND PELVIS: Bowel: Moderate stool retention especially right colon.. No evidence of mechanical obstruction. Free air: None. Bones: Lumbar spinal spondylosis. Bilateral hip arthrosis Other findings: Bilateral hemipelvic inferred phleboliths. Atherosclerotic vascular calcifications present.-each medial upper thigh IMPRESSION: No infiltrate. COPD inferred. Scoliosis No evidence of mechanical bowel obstruction. Extensive stool retention especially right colon.
[2018-09-18 09:05] VITALS: O2SAT 100
== END 2018-09-16 00:03 | disposition home or self-care (01) ==
LOC: C.ER 18:02
DX: K59.00 Constipation, unspecified (principal); R10.9 Unspecified abdominal pain
CPT/HCPCS: 74022; 80053; 82550; 83690; 85025; 85610; 85730; 96360; 99283; J7030

== ENCOUNTER 2018-10-08 08:40 | Outpatient (CLI) | payer MEDICARE | END 2018-10-08 08:41 | disposition home or self-care (01) | LOC: C.RT 08:40 ==

== ENCOUNTER 2018-10-23 08:41 | Outpatient (CLI) | payer MEDICARE | END 2018-10-23 08:42 | disposition home or self-care (01) | LOC: C.CTH 08:41 | DX: F03.90 Unspecified dementia, unspecified severity, without behavioral disturbance, psychotic disturbance, mood disturbance, and anxiety (principal) ==

== ENCOUNTER 2019-01-05 11:24 | Outpatient (CLI) | payer MEDICARE | END 2019-01-05 11:25 | disposition home or self-care (01) | LOC: C.LAB 11:24 | DX: I10 Essential (primary) hypertension (principal); R10.13 Epigastric pain ==

== ENCOUNTER 2019-01-30 10:47 | Outpatient (CLI) | payer MEDICARE | END 2019-01-30 10:48 | disposition home or self-care (01) | LOC: C.RADH 10:47 | DX: R10.11 Right upper quadrant pain (principal) ==